=== PATIENT | female | born 1950 ===

== ENCOUNTER 2016-08-15 15:10 | Emergency (ER) | payer MEDICARE ==
[2016-08-15 15:10] VITALS: BMI 29.7
[2016-08-15 15:37] VITALS: BP 150/65; PULSE 78; RESP 18; TEMP 98.6; O2SAT 98
--- NOTE | 2016-08-15 17:40 | ED PDOC ---
HPI: Abdomen Time Seen by Provider: 08/15/16 16:59 Chief Complaint (Nursing): Abdominal Pain Chief Complaint (Provider): Acute gastroenteritis History Per: Patient Additional Complaint(s): 66 yo female, PMH of DM and HTN, Patient having RUQ/Epigastric pain x 2 days. Pt notes associated nausea, vomiting and diarrhea. No mediations taken for symptoms thus far. No fever Past Medical History Reviewed: Nursing Documentation, Vital Signs Vital Signs: Last Vital Signs Temp 98.6 F 08/15/16 15:34 Pulse 78 08/15/16 15:34 Resp 18 08/15/16 15:34 BP 150/65 08/15/16 15:34 Pulse Ox 98 08/15/16 17:39 - Medical History PMH: Diabetes, HTN (not on medication), Hypercholesterolemia Denies: Chronic Kidney Disease - Family History Family History: States: Unknown Family Hx - Living Arrangements Living Arrangements: With Family - Social History Current smoker - smoking cessation education provided: No Alcohol: None Drugs: Denies - Immunization History Hx Tetanus Toxoid Vaccination: Yes Hx Influenza Vaccination: Yes Hx Pneumococcal Vaccination: Yes - Home Medications Home Medications: Ambulatory Orders Medication Instructions Recorded Enalapril Maleate 20 mg PO DAILY 06/05/14 Glimepiride 4 mg PO Q12 06/05/14 metFORMIN [glucOPHAGE] 850 mg PO BID 06/05/14 Pravastatin Sodium 40 mg PO HS 07/09/15 Insulin Glargine,Hum.rec.anlog 16 unit SQ QAM 08/15/16 [Romeo Maddox] - Allergies Allergies/Adverse Reactions: Allergies Allergy/AdvReac Type Severity Reaction Status Date / Time No Known Allergies Allergy Verified 08/15/16 12:39 Review of Systems ROS Statement: Except As Marked, All Systems Reviewed And Found Negative Gastrointestinal: Positive for: Nausea, Vomiting, Abdominal Pain, Diarrhea Physical Exam - Reviewed Nursing Documentation Reviewed: Yes Vital Signs Reviewed: Yes - Physical Exam Appears: Positive for: Well, Non-toxic, No Acute Distress Head Exam: Positive for: ATRAUMATIC, NORMAL INSPECTION, NORMOCEPHALIC Skin: Positive for: Normal Color, Warm, DRY Eye Exam: Positive for: EOMI, Normal appearance, PERRL ENT: Positive for: Normal ENT Inspection Neck: Positive for: Normal, Painless ROM Cardiovascular/Chest: Positive for: Regular Rate, Rhythm Respiratory: Positive for: CNT, Normal Breath Sounds Gastrointestinal/Abdominal: Positive for: Bowel Sounds, Soft, Tenderness ( epigastric) Back: Positive for: Normal Inspection Extremity: Positive for: Normal ROM Neurologic/Psych: Positive for: Alert, Oriented - Laboratory Results Result Diagrams: 08/15/16 18:15 08/15/16 18:15 - ECG O2 Sat by Pulse Oximetry: 98 Medical Decision Making Medical Decision Making: IV access established and diagnostics ordered. Treatment initiated with GI cocktail, Pepcid and Zofran. IVF running as well CBC and UA resulted WNL COMP with elevated glucose and Amylase 1563 RUQ US ordered Case endorsed to MASON Paez at 20:00 pending diagnostic review and re-eval Disposition - Clinical Impression Clinical Impression: Abdominal pain in female, Gastroenteritis - Patient ED Disposition Is Patient to be Admitted: Transfer of Care ([facility]) - Disposition Disposition: Transfer of Care ([facility]) Disposition Time: 19:25 Condition: STABLE - POA Present On Arrival: None
[2016-08-15] MEDS ORDERED: Alum-Mag Hydrox-Simethicone Susp (30 mL) ONE (17:49)
[2016-08-15] MEDS: Alum-Mag Hydrox-Simethicone Susp (30 mL) PO STA (17:58)
[2016-08-15 18:47] LABS: SQUAMOUS EPITHIAL 2 /hpf (0-5); URINE BILIRUBIN NEGATIVE (NEGATIVE); URINE BLOOD NEGATIVE (NEGATIVE); URINE CLARITY CLEAR (Clear); URINE COLOR STRAW (YELLOW); URINE GLUCOSE (UA) >=500 mg/dL (Normal); URINE LEUKOCYTE ESTERASE TRACE Leu/uL (Negative); URINE NITRATE NEGATIVE (NEGATIVE); URINE PROTEIN NEGATIVE (NEGATIVE); URINE UROBILINOGEN 0.2-1.0 mg/dL (0.2-1.0)
[2016-08-15 18:55] LABS: ALB/GLOB RATIO 1.1 (1.0-2.1); ALBUMIN 4.2 g/dL (3.5-5.0); ALT/SGPT 48 U/L (9-52); AST/SGOT 31 U/L (14-36); BLOOD UREA NITROGEN 12 mg/dl (7-17); CALCIUM 9.9 mg/dL (8.4-10.2); GFR AFRICAN-AMERICAN > 60; GFR NON-AFRICAN AMERICAN > 60; LIPASE 73 U/L (23-300)
[2016-08-15 18:56] LABS: BASO % 0.5 % (0.0-2.0); EOS % 0.1 % (0.0-4.0); HEMOGLOBIN 13.4 g/dL (12.0-16.0); LYMPH # 2.4 K/uL (1.0-4.3); LYMPH % 26.6 % (20.0-40.0); MEAN CELL VOLUME 97.1 fl (81.0-99.0); MEAN CORPUSCULAR HEMOGLOBIN 32.5 pg (27.0-31.0); MEAN CORPUSCULAR HGB CONC 33.4 g/dL (33.0-37.0); MEAN PLATELET VOLUME 9.8 fl (7.2-11.7); MONO # 0.4 K/uL (0.0-0.8); MONO % 4.7 % (0.0-10.0); NEUT # 6.2 K/uL (1.8-7.0); NEUT % 68.1 % (50.0-75.0); NRBC % 0.1 % (0.0-0.0); RBC 4.11 Mil/uL (3.80-5.20); RED CELL DISTRIBUTION WIDTH 12.9 % (11.5-14.5); WHITE BLOOD COUNT 9.1 K/uL (4.8-10.8)
[2016-08-15 19:01] LABS: AMYLASE 1563 U/L (30-110)
--- NOTE | 2016-08-15 20:44 | ED PDOC ---
- Laboratory Results Result Diagrams: 08/15/16 18:15 08/15/16 18:15 - ECG O2 Sat by Pulse Oximetry: 98 - Progress ED Course And Treament: case endorsed to sheet writer from Jameel CUEVAS pending u/s 20:40 Patient states she is feeling better and does not wish to stay for the ultrasound. Tolerated PO Patient educated on findings, discharged with rx Zofran. Advised to follow up with PMD this week. [place] diet. Fluids. Return to ED for worsening/concerning symptoms. Disposition - Clinical Impression Clinical Impression: Abdominal pain in female, Gastroenteritis, Elevated amylase - POA Present On Arrival: None - Disposition Disposition: Routine/Home Disposition Time: 20:43 Condition: IMPROVED Prescriptions: Ondansetron ODT [Zofran ODT] 4 mg PO Q8 PRN #10 odt PRN Reason: Nausea/Vomiting Instructions: Gastroenteritis (ED) Print Language: PASHTO
--- NOTE | 2016-08-16 07:30 | CARD ---
APPROVED REPORT EKG Measurement Heart [id number] <Conclusion> Normal sinus rhythm Possible Left atrial enlargement Borderline ECG
== END 2016-08-15 21:05 | disposition home or self-care (01) ==
LOC: H.ER 15:10
DX: K52.9 Noninfective gastroenteritis and colitis, unspecified (principal); R11.2 Nausea with vomiting, unspecified; E11.9 Type 2 diabetes mellitus without complications; I10 Essential (primary) hypertension; Z79.4 Long term (current) use of insulin; Z79.899 Other long term (current) drug therapy
CPT/HCPCS: 80053; 81003; 82150; 82948; 83690; 84484; 85025; 93005; 96374; 96375; 99283; J2405